=== PATIENT | male | born 2000 | race Hispanic/Latino ===

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

== ENCOUNTER → 2023-03-25 | Emergency (ER) | payer OTHER, SELFPAY ==
[~2023-03-25] MED LIST: NA CHLORIDE 0.9% 1,000 ML ONE; POTASSIUM 25 MEQ EFFERV TAB ONE
[2023-03-26 00:30] LABS: Absolute Lymphocytes (CBC) 1.2 K/uL (0.7-4.9); Hematocrit 45.9 % (39.6-49.0); Lymphocytes % 8.3 % (15.3-44.8); MCV 88.1 fL (80-100); MPV 9.9 fL (7.6-11.3); Platelets 147 thou/uL (152-406); RBC Red Blood Cell Count 5.21 M/uL (4.33-5.43)
[2023-03-26 00:53] LABS: ALT/SGPT 18 U/L (16-61); AST/SGOT 13 U/L (15-37); Albumin 3.7 g/dL (3.4-5.0); Alkaline Phosphatase 100 U/L (45-117); BUN Blood Urea Nitrogen 15 mg/dL (7-18); Bicarbonate 30 mEq/L (21-32); Bilirubin Direct 0.1 mg/dL (0-0.2); Bilirubin Indirect, Calculated 0.4 mg/dL (0.2-0.8); Bilirubin Total 0.5 mg/dL (0.2-1.0); Glomerular Filtration Rate 121 ml/min (=/>90); Glucose Level 107 mg/dL (74-106); Potassium 3.1 mEq/L (3.5-5.1); Protein, Total 7.2 g/dL (6.4-8.2); Sodium Level 143 mEq/L (136-145)
[2023-03-26 01:18] LABS: Specific Gravity 1.025 (1.005-1.030); Urine Bacteria <20 /HPF (<20); Urine Bilirubin NEGATIVE (Negative); Urine Blood Negative (Negative); Urine Clarity Clear (Clear); Urine Color Yellow (Yellow); Urine Glucose NEGATIVE (Negative); Urine Mucus 1+ /HPF (None Seen); Urine Protein 1+ (Negative); Urine RBC <5 /HPF (None Seen); Urine Urobilinogen Normal (Normal); Urine pH 5.5 (5.0-7.0)
[2023-03-26 01:29] LABS: Blood Morphology Comment NOT SEEN (NOT SEEN); Platelet Estimate DECR
[2023-03-26 01:32] LABS: Protime INR 1.23
[2023-03-26 01:51] LABS: Barbiturates NEGATIVE (NEGATIVE); Benzodiazepines POSITIVE (NEGATIVE); Cocaine NEGATIVE (NEGATIVE); METHAMPHETAM NEGATIVE (NEGATIVE); Methadone NEGATIVE (NEGATIVE); Opiates NEGATIVE (NEGATIVE); Phencyclidine NEGATIVE (NEGATIVE); THC Cannibis POSITIVE (NEGATIVE)
--- NOTE | 2023-03-26 02:08 | ER ---
Nurse's Notes [facility] Name: Denton Kinney Age: 22 yrs Sex: Male : 2000 Arrival Date: 03/25/2023 Time: 23:24 Bed 6 Private MD: Diagnosis: Hypokalemia;Adverse effect of other narcotics Presentation: 03/25 23:20 Chief complaint: EMS states: Pt picked up from home after mom found him and his brother la4 down unresponsive after taking "pressed percocet" at 2230 which is reported to have fentanyl in it. Pt is alert and oriented and admits to taking a non-prescribed "percocet" and states that he took the pill approx an hour ago. Police were on scene at time of EMS arrival and pt ambulatory to EMS truck. Police on scene first gave patient intranasal narcan 4mg. 23:20 Coronavirus screen: Vaccine status: Patient reports being unvaccinated. At this time, la4 the client does not indicate any symptoms associated with coronavirus-19. Ebola Screen: Patient negative for fever greater than or equal to 101.5 degrees Fahrenheit, and additional compatible Ebola Virus Disease symptoms Patient denies exposure to infectious person. Patient denies travel to an Ebola-affected area in the 21 days before illness onset. No symptoms or risks identified at this time. Initial Sepsis Screen: Does the patient meet any 2 criteria? No. Patient's initial sepsis screen is negative. Does the patient have a suspected source of infection? No. Patient's initial sepsis screen is negative. Risk Assessment: Do you want to hurt yourself or someone else? Patient reports no desire to harm self or others. Onset of symptoms was March 25, 2023. 23:20 Method Of Arrival: EMS: [facility] la4 23:20 Acuity: GUILLERMO 3 la4 23:20 Care prior to arrival: Medication(s) given: Intranasal Narcan 4MG IV initiated. 20 GA, la4 in the left hand. Activity prior to arrival: None. Transition of care: patient was not received from another setting of care. Triage Assessment: 23:38 General: Appears in no apparent distress. Behavior is cooperative, agitated. Pain: la4 Denies pain. EENT: No deficits noted. No signs and/or symptoms were reported regarding the EENT system. Neuro: No deficits noted. Mccabe Agitation-Sedation Scale (RASS): 0 - Alert and Calm Level of Consciousness is awake, alert, obeys commands, Oriented to person, place, time, situation, Appropriate for age. Cardiovascular: No deficits noted. Denies chest pain, shortness of breath, Heart tones S1 S2 Capillary refill < 3 seconds is brisk JVD is absent Patient's skin is warm and dry. Pulses are all present. Edema is absent. Rhythm is sinus rhythm Chest pain is denied. Respiratory: No deficits noted. Airway is patent Trachea midline Respiratory effort is even, unlabored, Respiratory pattern is regular, symmetrical, Breath sounds are clear bilaterally. GI: No deficits noted. No signs and/or symptoms were reported involving the gastrointestinal system. GI:. : No deficits noted. No signs and/or symptoms were reported regarding the genitourinary system. Derm: No deficits noted. No signs and/or symptoms reported regarding the dermatologic system. Musculoskeletal: No deficits noted. No signs and/or symptoms reported regarding the musculoskeletal system. Historical: - Allergies: 23:38 NKA; la4 - Home Meds: 23:38 Adderall XR 30 mg Oral cp24 1 cap once daily [Active]; la4 - PMHx: 23:38 ADD/ADHD; Asthma; la4 - PSHx: 23:38 None; la4 - Immunization history:: Adult Immunizations up to date. - Social history:: Smoking status: Patient denies any tobacco usage or history of. Patient uses street drugs, pressed percocet aka fentanyl. - Code Status:: Full code. Screenin:43 [facility] ED Fall Risk Assessment (Adult) History of falling in the last 3 months, la4 including since admission No falls in past 3 months (0 pts) Confusion or Disorientation No (0 pts) Intoxicated or Sedated Yes (3 pts) Impaired Gait No (0 pts) Mobility Assist Device Used No (0 pt) Altered Elimination No (0 pt) Score/Fall Risk Level 3 or more points = High Risk Maintained a safe environment, Educated pt \\T\\ family on fall prevention, incl call for assistance when getting out of bed, Hourly rounding (assess needs \\T\\ fall precautionary measures) done, Implemented a Fall Risk Plan of Care. Abuse screen: Denies threats or abuse. Denies injuries from another. Nutritional screening: No deficits noted. Tuberculosis screening: No symptoms or risk factors identified. Assessment: 23:43 Reassessment: No changes from previously documented assessment. pt noted to be la4 agitated. When reported by EMS that pt was ambulatory out the door when arriving to the home the patient stated "Yeah, I just wanted to get this over as quickly as possible." Patients mother is at the bedside and states that she also brought her other son in as well for the same thing. States that they took the pills together and had the same symptoms Patient states feeling better. General: Appears in no apparent distress. Behavior is cooperative. Pain: Denies pain. Neuro: Mccabe Agitation-Sedation Scale (RASS): 0 - Alert and Calm Level of Consciousness is awake, alert, obeys commands, Oriented to person, place, time, situation, Appropriate for age. Psych: 23:49 [place] Suicide Severity Screening: In the past month, have you wished you were la4 or wished you could go to sleep and not wake up? Patient responds "No." "In the past month, have you actually had any thoughts of killing yourself?" Patient responds "no." "In your lifetime, have you ever done anything, started to do anything, or prepared to do anything to end your life?" Patient responds "no.". Subjective: Patient's mood is irritable, Delusions are denied, Hallucinations are denied Having thoughts of none. Objective: Patient is cooperative, Speech is normal, Affect is appropriate. Interventions: mother at bedside. Safety Checks: none needed. pt reports use of pressed percocet. Commitment: none. Vital Signs: 23:20 BP 138 / 92; Pulse 80; Resp 20; Temp 99(O); Pulse Ox 100% ; Weight 127.01 kg; Height 6 la4 ft. 3 in. ; 23:38 BP 138 / 92; Pulse 80; Resp 20; Temp 99; Pulse Ox 100% ; Weight 127.01 kg; Height 6 ft. la4 3 in. ; 03/26 02:22 BP 142 / 88; Pulse 74; Resp 18; Temp 98.4; Pulse Ox 100% on R/A; Pain 0/10; la4 03/25 23:38 Body Mass Index 35.00 (127.01 kg, 190.5 cm) la4 03/26 02:22 Pain Scale: Adult la4 [place] Coma Score: 03/25 23:43 Eye Response: spontaneous(4). Motor Response: obeys commands(6). Verbal Response: la4 oriented(5). Total: 15. 03/26 02:22 Eye Response: spontaneous(4). Motor Response: obeys commands(6). Verbal Response: la4 oriented(5). Total: 15. ED Course: 03/25 23:29 Patient arrived in ED. as6 23:32 Ila Nelson RN is Primary Nurse. la4 23:37 Triage completed. la4 23:38 Marcos Chauhan PA is PHCP. cp 23:38 Piero Orozco MD is Attending Physician. cp 23:38 Arm band placed on right wrist. Patient placed in an exam room, on a stretcher, on la4 monitoring specialist, on pulse oximetry, Patient notified of wait time. EKG completed in triage. Results shown to MD. EKG completed in triage. Results shown to MD. 23:43 Patient has correct armband on for positive identification. Bed in low position. Call la4 light in reach. Side rails up X 1. Provided Education on: plan of care. Pulse ox on. NIBP on. 23:43 No provider procedures requiring assistance completed. Maintain EMS IV. Dressing la4 intact. Good blood return noted. Site clean \\T\\ dry. Gauge \\T\\ site: 20 gauge PIV. IV is patent, is intact, with good blood return, Flushed left hand. Administered Medications: 03/26 00:10 Drug: NS 0.9% IV 1000 ml IV at 1 bolus Per protocol; 1000 mL bolus Route: IV; Rate: 1 la4 bolus; Site: left hand; 01:44 Drug: Potassium PO Effervescent Tablet 50 mEq PO once; dissolve in 4 ounces of water or la4 juice Route: PO; Medication: 03/25 23:43 VIS not applicable for this client. la4 Output: 03/26 02:22 Urine: 500ml (Voided); Total: 500ml. la4 Outcome: 02:08 Discharge ordered by . cp 02:23 Patient left the ED. la4 Signatures: Marcos Chauhan PA PA cp Slawson, Ashby, RN RN as6 Ila Nelson RN RN laMian
--- NOTE | 2023-03-26 02:08 | EDPHYS ---
Physician Documentation [facility] Name: Denton Kinney Age: 22 yrs Sex: Male : 2000 Arrival Date: 03/25/2023 Time: 23:24 Bed 6 Private MD: ED Physician Piero Orozco HPI: 03/25 23:45 This 22 yrs old Male presents to ER via EMS with complaints of Overdose. cp 23:45 The patient presents to the emergency department after a known overdose, a result of cp recreational substance abuse. Context: Method: the patient has a confirmed or suspected ingestion, of narcotics, Time: 1 hour(s) ago, Extent: street Percocet times 1, the OD/poisoning occurred at at home. Associated signs and symptoms: Pertinent positives: decreased level of consciousness. Law enforcement administered 4 mg of Narcan intranasally prior to arrival. Historical: - Allergies: 23:38 NKA; la4 - Home Meds: 23:38 Adderall XR 30 mg Oral cp24 1 cap once daily [Active]; la4 - PMHx: 23:38 ADD/ADHD; Asthma; la4 - PSHx: 23:38 None; la4 - Immunization history:: Adult Immunizations up to date. - Social history:: Smoking status: Patient denies any tobacco usage or history of. Patient uses street drugs, pressed percocet aka fentanyl. - Code Status:: Full code. ROS: 23:50 All other systems are negative, cp Exam: 23:55 Constitutional: The patient appears in no acute distress, alert, awake, comfortable, cp non-diaphoretic, non-toxic, well developed, well nourished, 23:55 Head/Face: Normocephalic, atraumatic. cp 23:55 Eyes: Periorbital structures: appear normal, Pupils: equal, round, and reactive to light and accomodation, Extraocular movements: intact throughout, Conjunctiva: normal, no exudate, no injection, Sclera: no appreciated abnormality, Lids and lashes: appear normal, bilaterally, 23:55 ENT: External ear(s): are unremarkable, Nose: is normal, Mouth: Lips: moist, Oral mucosa: pink and intact, moist, Posterior pharynx: Airway: no evidence of obstruction, patent, 23:55 Neck: ROM/movement: is normal, is supple, without pain, no range of motions limitations, 23:55 Chest/axilla: Inspection: normal, Palpation: is normal, no crepitus, no tenderness, 23:55 Cardiovascular: Rate: normal, Rhythm: regular, Edema: is not appreciated, JVD: is not appreciated, 23:55 Respiratory: the patient does not display signs of respiratory distress, Respirations: normal, no use of accessory muscles, no retractions, labored breathing, is not present, Breath sounds: are clear throughout, no decreased breath sounds, no stridor, no wheezing, 23:55 Abdomen/GI: Inspection: abdomen appears normal, Palpation: abdomen is soft and non-tender, in all quadrants, 23:55 Neuro: Orientation: to person, place \T\ time. Mentation: is normal, Cerebellar function: is grossly normal, Motor: moves all fours, strength is normal, Sensation: is normal, 03/26 00:58 ECG was reviewed by the Attending Physician. cp Vital Signs: 03/25 23:20 BP 138 / 92; Pulse 80; Resp 20; Temp 99(O); Pulse Ox 100% ; Weight 127.01 kg; Height 6 la4 ft. 3 in. ; 23:38 BP 138 / 92; Pulse 80; Resp 20; Temp 99; Pulse Ox 100% ; Weight 127.01 kg; Height 6 ft. la4 3 in. ; 03/26 02:22 BP 142 / 88; Pulse 74; Resp 18; Temp 98.4; Pulse Ox 100% on R/A; Pain 0/10; la4 03/25 23:38 Body Mass Index 35.00 (127.01 kg, 190.5 cm) la4 03/26 02:22 Pain Scale: Adult la4 [place] Coma Score: 03/25 23:43 Eye Response: spontaneous(4). Motor Response: obeys commands(6). Verbal Response: la4 oriented(5). Total: 15. 03/26 02:22 Eye Response: spontaneous(4). Motor Response: obeys commands(6). Verbal Response: la4 oriented(5). Total: 15. MDM: 03/25 23:45 Patient medically screened. cp 03/26 00:00 Differential diagnosis: over medication, hypoglycemia, cardiac arrhythmia, overdose, cp electrolyte abnormality. 02:07 Data reviewed: vital signs, nurses notes, lab test result(s), EKG. 02:07 Consideration of Admission/Observation Escalation of care including cp admission/observation considered. Counseling: I had a detailed discussion with the patient and/or guardian regarding the historical points, exam findings, and any diagnostic results supporting the discharge/admit diagnosis, lab results, to return to the emergency department if symptoms worsen or persist or if there are any questions or concerns that arise at home. 03/25 23:38 Order name: Acetaminophen; Complete Time: 01:11 cp 03/25 23:38 Order name: Basic Metabolic Panel; Complete Time: 01:11 cp 03/26 01:12 Interpretation: Normal except: K 3.1; GLUC 107; CA 8.3. cp 03/25 23:38 Order name: CBC with Diff; Complete Time: 01:38 cp 03/26 01:12 Interpretation: Normal except: WBC 14.90; PLT 147; JAM% 86.9; LYM% 8.3; NEUT A 13.0. cp 03/25 23:38 Order name: ETOH Level; Complete Time: 02:21 cp 03/25 23:38 Order name: Hepatic Function; Complete Time: 01:11 cp 03/26 01:12 Interpretation: Normal except: AST 13. cp 03/25 23:38 Order name: PT-INR; Complete Time: :38 cp 03/26 01:38 Interpretation: Reviewed. cp 03/25 23:38 Order name: Ptt, Activated; Complete Time: 01:38 cp 03/26 01:39 Interpretation: Reviewed. 03/25 23:38 Order name: Salicylate; Complete Time: 01:38 cp 03/25 23:38 Order name: Urinalysis w/ reflexes; Complete Time: 01:38 cp 03/26 01:38 Interpretation: Normal except: UPROT 1+; HYAL 10-20. 03/25 23:38 Order name: Urine Drug Screen; Complete Time: 02:21 cp 03/26 02:21 Interpretation: Normal except: BZO POSITIVE; THC POSITIVE. cp 03/26 00:33 Order name: Manual Differential; Complete Time: 01:38 EDMS 03/26 01:39 Interpretation: Normal except: LYM 10. 03/25 23:38 Order name: EKG - Nurse/Tech; Complete Time: 01:10 cp 03/25 23:38 Order name: IV Saline Lock; Complete Time: 23:48 cp 03/25 23:38 Order name: Labs collected and sent; Complete Time: 00:10 cp 03/25 23:38 Order name: Suicide Screening ([place]); Complete Time: 23:48 cp EC:58 Rate is 61 beats/min. Rhythm is regular. CO interval is normal. QRS interval is cp prolonged at 104 msec. QT interval is normal. T waves are Inverted in lead aVR. Interpreted by me. Reviewed by me. Administered Medications: 00:10 Drug: NS 0.9% IV 1000 ml IV at 1 bolus Per protocol; 1000 mL bolus Route: IV; Rate: 1 la4 bolus; Site: left hand; 01:44 Drug: Potassium PO Effervescent Tablet 50 mEq PO once; dissolve in 4 ounces of water or la4 juice Route: PO; Disposition: 02:59 Co-signature as Attending Physician, Piero Orozco MD I agree with the assessment sp4 and plan of care. I reviewed the patient's care provided by Advanced Practice Provider \T\ agree w/ the diagnosis \T\ care plan. I personally saw the pt \T\ performed a substantive portion of the visit, incldng all aspects of the (History/Exam/Medical Decision Making). Disposition Summary: 03/26/23 02:08 Discharge Ordered Notes: Location: Home cp Problem: new cp Symptoms: have improved cp Condition: Stable cp Diagnosis - Hypokalemia cp - Adverse effect of other narcotics cp Followup: cp - With: Private Physician - When: 1 - 2 days - Reason: Recheck today's complaints Discharge Instructions: - Discharge Summary Sheet cp - Potassium Content of Foods cp - Accidental Drug Poisoning, Adult cp - Hypokalemia cp - Illegal Drug Use Information, Adult cp Forms: - Medication Reconciliation Form cp - Thank You Letter cp - Antibiotic Education cp - Prescription Opioid Use cp - Patient Portal Instructions cp - Leadership Thank You Letter cp Signatures: Dispatcher [employer] EDMS Marcos Chauhan PA PA cp Potepalov, Sergey, MD MD sp4 Ila Nelson RN RN la4 Corrections: (The following items were deleted from the chart) 02:09 02:08 Adverse effect of other psychotropic drugs cp cp
[2023-03-26 05:33] VITALS: BP 142/88; TEMP 98.4; O2SAT 100
--- NOTE | 2023-03-26 16:56 | EKG ---
Test Date: 2023-03-26 Test Time: 00:50:53 Weblogic Developer: KP MEASUREMENT RESULTS: Intervals: Rate: 61 OR: 172 QRSD: 104 QT: 362 QTc: 364 [place]: P: 67 OR: 172 QRS: 79 T: 45 INTERPRETIVE STATEMENTS: Normal sinus rhythm Normal ECG No previous ECG available for comparison Electronically Signed On 03-26-23 16:55:09 PAPER PRODUCTS SUPERVISOR by Pankaj Parker
== END ==
LOC: ER 23:24
DX: E87.6 Hypokalemia (principal); T40.695A Adverse effect of other narcotics, initial encounter
CPT/HCPCS: 36415; 80048; 80076; 80143; 80179; 80307; 81001; 82077; 85025; 85610; 85730; 93005; 99284